=== PATIENT | female | born 1975 | race Two or more races ===

== ENCOUNTER → 2017-09-09 | Outpatient (CLI) | payer OTHER ==
[~2017-09-09] VITALS: Ht 180.3 cm; Wt 95.3 kg
== END | disposition home or self-care (01) ==
LOC: OFIC 805 08:35
DX: R09.81 Nasal congestion (principal); J30.89 Other allergic rhinitis

== ENCOUNTER 2017-10-13 13:04 | Outpatient (CLI) | payer OTHER ==
[~2017-10-13] VITALS: Ht 152.4 cm; Wt 95.3 kg
== END 2017-10-13 13:20 | disposition home or self-care (01) ==
LOC: OFIC 805 13:04
DX: J30.89 Other allergic rhinitis (principal); G47.39 Other sleep apnea

== ENCOUNTER 2018-02-11 10:27 | Outpatient (CLI) | payer OTHER ==
[~2018-02-11] VITALS: Ht 152.4 cm; Wt 90.7 kg
[2018-02-11] MEDS ORDERED: CIPRO500 MG PO (12:45)
[2018-02-11] MEDS ORDERED: MUCINEX600 MG PO (12:45)
== END 2018-02-11 10:45 | disposition home or self-care (01) ==
LOC: OFIC 805 10:27
DX: J01.80 Other acute sinusitis (principal); J32.8 Other chronic sinusitis; H65.191 Other acute nonsuppurative otitis media, right ear; H70.12 Chronic mastoiditis, left ear; J34.2 Deviated nasal septum

== ENCOUNTER 2024-03-27 13:55 | Emergency (ER) | payer OTHER ==
[~2024-03-27] VITALS: Ht 177.8 cm; Wt 95.3 kg
[~2024-03-27 13:55] MED LIST: CIPRO500 MG PO; MUCINEX600 MG PO
[2024-03-27] MEDS ORDERED: TRAMADOL HCL 50 MG TABLET PO STA (16:04)
== END 2024-03-27 16:53 | disposition home or self-care (01) ==
LOC: ER 13:57
DX: S92.002A Unspecified fracture of left calcaneus, initial encounter for closed fracture (principal); S50.12XA Contusion of left forearm, initial encounter; S50.11XA Contusion of right forearm, initial encounter; W17.89XA Other fall from one level to another, initial encounter; Y93.89 Activity, other specified; Y92.89 Other specified places as the place of occurrence of the external cause; Z88.0 Allergy status to penicillin; Z88.6 Allergy status to analgesic agent